=== PATIENT | female | born 1970 | race Caucasian/White ===

== ENCOUNTER 2016-05-08 11:10 | Emergency (ER) | payer MEDICAID ==
[2016-05-08] MEDS ORDERED: METHYLPRED SOD SUCC 125 MG/2 ML VIAL ONE (12:48)
[2016-05-08] MEDS ORDERED: DUONEB INH ONE (12:51)
== END 2016-05-08 14:17 | disposition home or self-care (01) ==
LOC: ER 11:10
DX: J20.9 Acute bronchitis, unspecified (principal); F17.210 Nicotine dependence, cigarettes, uncomplicated
CPT/HCPCS: 71020; 87804; 94640; 96372